=== PATIENT | female | born 1980 | race Caucasian/White ===

== ENCOUNTER 2019-05-29 15:12 | Emergency (ER) | payer MEDICAID ==
[~2019-05-29] VITALS: Ht 170.2 cm; Wt 96.2 kg
[2019-05-29 15:21] VITALS: BP 116/70
[2019-05-29] MEDS ORDERED: ROBCFL PO (16:19)
[2019-05-29] MEDS ORDERED: BENZ-16 PO (16:19)
== END 2019-05-29 16:31 | disposition home or self-care (01) ==
LOC: ER 15:12
DX: J06.9 Acute upper respiratory infection, unspecified (principal); R05 Cough; F17.200 Nicotine dependence, unspecified, uncomplicated; Z88.5 Allergy status to narcotic agent
CPT/HCPCS: 99283

== ENCOUNTER 2019-06-01 15:06 | Emergency (ER) | payer MEDICAID ==
[~2019-06-01] VITALS: Ht 170.2 cm; Wt 95.5 kg
[~2019-06-01 15:06] MED LIST: BENZ-16 PO; ROBCFL PO
[2019-06-01] MEDS ORDERED: AZIT500T PO (16:01)
[2019-06-01] MEDS ORDERED: PRED20TA PO (16:01)
[2019-06-01] MEDS ORDERED: ALBU8HFA PO (16:01)
== END 2019-06-01 16:36 | disposition home or self-care (01) ==
LOC: ER 15:06
DX: J20.9 Acute bronchitis, unspecified (principal); J06.9 Acute upper respiratory infection, unspecified; F17.200 Nicotine dependence, unspecified, uncomplicated; Z88.5 Allergy status to narcotic agent; Z79.899 Other long term (current) drug therapy
CPT/HCPCS: 71045; 99283

== ENCOUNTER 2022-07-26 20:27 | Emergency (ER) | payer MEDICAID ==
[~2022-07-26] VITALS: Ht 170.2 cm; Wt 98.0 kg
[2022-07-26 20:36] VITALS: BP 124/73
[2022-07-26] MEDS ORDERED: ketorolac trometh. 30mg/ml inj. IM ONE (21:40)
[2022-07-26] MEDS ORDERED: CYCL-1 PO (22:10)
== END 2022-07-26 22:16 | disposition home or self-care (01) ==
LOC: ER 20:27
DX: M25.561 Pain in right knee (principal); M79.661 Pain in right lower leg; G47.62 Sleep related leg cramps; Z88.5 Allergy status to narcotic agent
CPT/HCPCS: 73560; 73590; 96372; 99284; J1885; A6449

== ENCOUNTER 2022-10-29 18:20 | Emergency (ER) | payer MEDICAID ==
[~2022-10-29] VITALS: Ht 170.2 cm; Wt 86.3 kg
[~2022-10-29 18:20] MED LIST changes: -BENZ-16 PO; +CYCL-1 PO; -ROBCFL PO
[2022-10-29 18:24] VITALS: BP 111/73
[2022-10-29] MEDS ORDERED: ibuprofen tablet 400 MG TABLET PO ONE (19:45)
[2022-10-29] MEDS ORDERED: bacitracin ointment unit dose packet TP ONE (19:45)
[2022-10-29] MEDS ORDERED: bacitracin 15gm ointment TP ONE (19:55)
[2022-10-29] MEDS ORDERED: IBUP-1985 PO (20:02)
[2022-10-29] MEDS ORDERED: HYDR-3965 PO (20:02)
== END 2022-10-29 20:18 | disposition home or self-care (01) ==
LOC: ER 18:20
DX: T25.121A Burn of first degree of right foot, initial encounter (principal); T25.122A Burn of first degree of left foot, initial encounter; Z88.5 Allergy status to narcotic agent
CPT/HCPCS: 16000; 99283; A6222; A6223; A6446; A6449

== ENCOUNTER 2022-11-04 01:15 | Emergency (ER) | payer MEDICAID ==
[~2022-11-04] VITALS: Ht 170.2 cm; Wt 90.9 kg
[~2022-11-04 01:15] MED LIST changes: +HYDR-3965 PO; +IBUP-1985 PO
[2022-11-04 01:24] VITALS: BP 130/97
== END 2022-11-04 03:33 | disposition left against medical advice (07) ==
LOC: ER 01:16
DX: M79.671 Pain in right foot (principal); M79.672 Pain in left foot; Z53.21 Procedure and treatment not carried out due to patient leaving prior to being seen by health care provider
CPT/HCPCS: 93005; 99281

== ENCOUNTER 2023-01-13 09:39 | Inpatient (IN) | payer MEDICAID ==
[~2023-01-13] VITALS: Ht 170.2 cm; Wt 90.9 kg
[~2023-01-13 09:39] MED LIST changes: -HYDR-3965 PO
[2023-01-13] MEDS ORDERED: normal saline 1000ml 1,000 ML IV ONE ×2 (10:10→11:00)
[2023-01-13] MEDS ORDERED: piperacillin/tazo 4.5gm/100ml 100 ML IV ONE (11:00)
[2023-01-13] MEDS ORDERED: VANCOmycin 1250MG/NS 250ml Bag 250 ML IV ONE (11:00)
[2023-01-13] MEDS ORDERED: ketorolac trometh. 30mg/ml inj. IV ONE (11:00)
[2023-01-13 11:31] LABS: BASOPHILS % (AUTO) 0.2 % (0-1); EOSINOPHILS % (AUTO) 0.2 % (0-6); HEMATOCRIT 34.6 % (35.0-45.0); LYMPHOCYTES % (AUTO) 4.7 % (21-51); MEAN CORPUSCULAR HEMOGLOBIN 26.5 PG (27.0-31.0); MEAN CORPUSCULAR HGB CONC 31.9 g/dL (33.0-36.5); MEAN CORPUSCULAR VOLUME 83.1 FL (78-98); MEAN PLATELET VOLUME 7.6 FL (7.4-10.4); MONOCYTES # (AUTO) 0.5 X10'3 (0-0.9); MONOCYTES % (AUTO) 2.6 % (2-12); NEUTROPHILS % (AUTO) 92.3 % (42-75); PLATELET COUNT 316 X10'3 (140-440); RED BLOOD COUNT 4.16 X10'6 (4.20-5.60); RED CELL DISTRIBUTION WIDTH 15.9 % (11.5-14.5); WHITE BLOOD COUNT 20.6 X10'3 (4.5-11.0)
[2023-01-13 11:38] LABS: ALANINE AMINOTRANSFERASE 49 U/L (12-78); ALBUMIN 2.5 G/DL (3.4-5.0); ALBUMIN/GLOBULIN RATIO 0.6 (1.1-1.5); ALKALINE PHOSPHATASE 65 IU/L (46-116); ANION GAP 6 (8-16); ASPARTATE AMINO TRANSFERASE 47 U/L (10-37); BILIRUBIN,TOTAL 0.3 MG/DL (0.1-1.0); BLOOD UREA NITROGEN 8 MG/DL (7-18); BUN/CREATININE RATIO 10.3 (10.0-20.0); CHLORIDE 103 MMOL/L (99-107); CREATININE 0.78 MG/DL (0.40-0.90); GLUCOSE 128 MG/DL (70-104); SODIUM 133 MMOL/L (135-145); TOTAL CARBON DIOXIDE 24.1 MMOL/L (24-32); TOTAL PROTEIN 6.5 G/DL (6.4-8.2); eCRCL 93 ML/MIN; eGFR 82 ML/MIN
[2023-01-13 11:47] LABS: CALCIUM 8.5 MG/DL (8.5-10.1)
--- NOTE | 2023-01-13 12:26 | NUR ---
Giving break to primary rn at this time called pharmacy and spoke to [facility] pharmacist to ask if vancomycin and zyosin are ready yet and also confirmed if we can start iv vanco and zyosin at the same time through 2 different iv 's.as per phamracist the meds are ready to be picked up and okay to infuse both meds as same time through 2 diff iv's.
[2023-01-13] MEDS ORDERED: potassium chloride 8mEq ER tablet PO ONE (12:50)
[2023-01-13] MEDS ORDERED: potassium chloride 8mEq ER tablet PO SCH (12:50)
[2023-01-13] MEDS ORDERED: NO HOME MEDS (14:15)
[2023-01-13] MEDS ORDERED: potassium Cl 40MEQ/1/2NS 520ml 520 ML IV PRN (14:20)
[2023-01-13] MEDS ORDERED: magnesium 2GM in 50ml NS 50 ML IV PRN (14:20)
[2023-01-13] MEDS ORDERED: normal saline 1000ml 1,000 ML IV SCH (14:20)
[2023-01-13] MEDS ORDERED: acetaminophen 325mg tablet PO PRN (14:20)
[2023-01-13] MEDS ORDERED: magnesium hydroxide 30ml (MOM) UD suspension PO PRN (14:20)
[2023-01-13] MEDS ORDERED: ketorolac tromethamine 15mg/ml inj. IV PRN (14:20)
[2023-01-13] MEDS ORDERED: mag hydrox/Alum hydrox/simeth 30ml oral suspension PO PRN (14:20)
[2023-01-13] MEDS ORDERED: potassium Cl 20 mEq SR tablet PO PRN (14:20)
[2023-01-13] MEDS ORDERED: magnesium 4gm in 100ml NS 100 ML IV PRN (14:20)
[2023-01-13] MEDS ORDERED: ondansetron/PF 4mg/2ml inj IV PRN (14:20)
[2023-01-13] MEDS ORDERED: magnesium Cl slow-release 64mg tablet PO PRN (14:20)
[2023-01-13 15:10] LABS: BILIRUBIN,URINE NEGATIVE (Neg); CLARITY,URINE CLOUDY (Clear); COLOR,URINE YELLOW (Yellow); GLUCOSE, URINE NEGATIVE (Neg); KETONES,URINE TRACE mg/dl (Neg); LEUKOCYTE ESTERASE ,URINE TRACE (Neg); NITRITES, URINE POSITIVE (Neg); OCCULT BLOOD,URINE TRACE-INTACT (Neg); PROTEIN,URINE TRACE mg/dl (Neg)
[2023-01-13 15:12] LABS: UA COLLECTION TYPE CLN CATCH MIDSTREAM
[2023-01-13 15:16] LABS: BACTERIA,URINE 4+ /HPF (Neg); MUCUS STRANDS MANY /LPF (Neg); RBC,URINE 0-2 /HPF (0-2); SQUAMOUS EPITHELIAL CELL,UR MANY /LPF (FEW); WBC CLUMPS,URINE MODERATE /HPF (NEGATIVE)
[2023-01-13 15:27] LABS: HEMOGLOBIN A1C 5.5 % (4.5-6.2)
[2023-01-13] MEDS ORDERED: HYDROcodone/acetaminophen 10/325mg tab PO PRN (18:15)
[2023-01-13] MEDS ORDERED: HYDROcodone/acetaminophen 5mg/325mg tablet PO PRN (18:15)
--- NOTE | 2023-01-13 19:01 | NUR ---
report called to floor nurse. pt tx to room 4011 by [email or web address].
--- NOTE | 2023-01-13 19:15 | NUR ---
Recieved pt report from AMINTA Aguilera Nurse. Pt came in in a wheelchair w/ folks and made her comfortable in bed.
[2023-01-13 19:20] VITALS: BP 112/56; PULSE 106; RESP 18; TEMP 98.2; O2SAT 99
[2023-01-13] MEDS ORDERED: piperacillin/tazo 3.375gm/50ml 50 ML IV SCH (20:00)
[2023-01-13] MEDS: enoxaparin 40mg/0.4ml syringe SQ SCH (20:00)
[2023-01-13] MEDS ORDERED: K and/or MAG REPLACEMENT MC SCH (20:00)
[2023-01-13] MEDS: potassium Cl 20 mEq SR tablet PO PRN (20:47)
[2023-01-13 22:00] VITALS: BP 100/57; PULSE 105; RESP 18; TEMP 97.6; O2SAT 96
[2023-01-13 22:36] LABS: URINE AMPHETAMINE SCREEN POSITIVE (Neg); URINE BARBITUATE SCREEN NEGATIVE (Neg); URINE BENZODIAZEPINES SCREEN NEGATIVE (Neg); URINE CANNABINOID SCREEN POSITIVE (Neg); URINE COCAINE SCREEN NEGATIVE (Neg); URINE METHADONE SCREEN NEGATIVE (Neg); URINE OPIATE SCREEN NEGATIVE (Neg); URINE PHENCYCLIDINE SCREEN NEGATIVE (Neg)
[2023-01-14] MEDS ORDERED: VANCOmycin 1250MG/NS 250ml Bag 250 ML IV SCH (01:00)
[2023-01-14] MEDS: potassium Cl 20 mEq SR tablet PO PRN ×2 (01:00→05:24)
[2023-01-14 05:20] VITALS: RESP 18
--- NOTE | 2023-01-14 06:15 | NUR ---
Problems reprioritized. Patient report given, questions answered & plan of care reviewed with LAURO Bailey.
--- NOTE | 2023-01-14 06:30 | NUR ---
Patient in room [facility] 4011. I have received report from alison kulkarni rn and had the opportunity to ask questions and assume patient care.
--- NOTE | 2023-01-14 07:37 | NUR ---
Problems reprioritized. Patient report given, questions answered & plan of care reviewed with geovanni villanueva.
--- NOTE | 2023-01-14 08:00 | NUR ---
Assumed patient care, report received, questions answered.
--- NOTE | 2023-01-14 08:10 | NUR ---
Went in to introduce myself to patient, s/s distress, unease. Spouse at bedside, in a heated discussion. Attempted to introduce myself, assess situation. Pt states "I'm leaving, get me out of here now". Attempted to understand why she wanted to leave, patient unwilling to answer questions, just kept repeating that she wasn't being listened to; no one had listened to her since admission and had had enough of this place. Attempted to understand more of her frustrations, patient unwilling to discuss. States she was going to go over to [facility] to get treatment. Had to redirect several times to have patient put on her own clothing before leaving, was ready to go in her hospital gown and socks, and several reminders that her IV's needed to be removed prior to leaving. Pt in tears, silent but cooperative. PIV's removed, tips intact.
--- NOTE | 2023-01-14 08:30 | NUR ---
I have reviewed and agree with interventions, assessments, and documentation by Vijaya Kelly LVN.
[2023-01-15] MEDS ORDERED: VANCOMYCIN LEVEL IV ONE (00:30)
== END 2023-01-14 08:35 | disposition left against medical advice (07) | DRG 720 ==
LOC: ER 09:40 → ED HOLD 14:30 → ORTHO 4S 19:15
PROVIDERS: ADMIT Family Medicine; ATTEND Family Medicine
DX: A41.9 Sepsis, unspecified organism (principal); L03.115 Cellulitis of right lower limb; R59.0 Localized enlarged lymph nodes; Z20.822 Contact with and (suspected) exposure to COVID-19; F11.10 Opioid abuse, uncomplicated; R73.9 Hyperglycemia, unspecified; E87.6 Hypokalemia; F17.210 Nicotine dependence, cigarettes, uncomplicated; Z53.29 Procedure and treatment not carried out because of patient's decision for other reasons; Z88.5 Allergy status to narcotic agent
CPT/HCPCS: 36415; 71045; 80053; 80305; 81001; 83036; 83605; 83735; 84100; 84145; 85025; 87040; 87081; 87811; 93971; 99285; G0378; J1650; J1885; J2543; J3370; J7030